=== PATIENT | male | born 1985 | race Caucasian/White ===

== ENCOUNTER 2017-05-01 14:29 | Emergency (ER) | payer SELFPAY ==
[~2017-05-01] VITALS: Ht 188 cm; Wt 79.4 kg
[2017-05-01] MEDS ORDERED: Morphine Sulfate 4mg/ml Inj IVP ONE (14:45)
[2017-05-01 15:29] LABS: PROTHROMBIN TIME 10.5 SEC (9.30-11.50)
[2017-05-01] MEDS ORDERED: LORazepam Inj 2mg/ml 1ml IV ONE (15:30)
[2017-05-01 15:35] LABS: MEAN CORPUSCULAR HEMOGLOBIN 32.1 PG (27.0-31.0); MEAN CORPUSCULAR VOLUME 94 FL (80-99); MEAN PLATELET VOLUME 6.3 FL (6.5-10.1); PLATELET COUNT 265 K/UL (150-450); RED BLOOD COUNT 5.78 M/UL (4.70-6.10); RED CELL DISTRIBUTION WIDTH 10.9 % (11.6-14.8); WHITE BLOOD COUNT 16.8 K/UL (4.8-10.8)
[2017-05-01 15:46] LABS: ANION GAP 13 mmol/L (5-15); CALCIUM 9.3 MG/DL (8.5-10.1); CARBON DIOXIDE 24 MMOL/L (21-32); CHLORIDE 102 MMOL/L (98-107); CREATININE 1.4 MG/DL (0.55-1.30); GLOMERULAR FILTRATION RATE 58.7 mL/min (>60); SODIUM 139 MMOL/L (136-145)
[2017-05-01 15:51] LABS: ALANINE AMINOTRANSFERASE 22 U/L (12-78); ALBUMIN/GLOBULIN RATIO 1.4 (1.0-2.7); ASPARTATE AMINO TRANSFERASE 18 U/L (15-37); LIPASE 62 U/L (73-393); TOTAL PROTEIN 7.7 G/DL (6.4-8.2)
[2017-05-01 16:06] LABS: BAND NEUTROPHILS % (MANUAL) 0 % (0-8); BASOPHILS % (MANUAL) 0 % (0-2); EOSINOPHILS % (MANUAL) 0 % (0-3); LYMPHOCYTES % (MANUAL) 4 % (20-45); NEUTROPHILS % (MANUAL) 91 % (45-75); PLATELET ESTIMATE ADEQUATE; PLATELET MORPHOLOGY NORMAL; TOTAL CELLS COUNTED 100
[2017-05-01] MEDS ORDERED: ZOFRAN4 M3 ORAL (17:23)
[2017-05-01] MEDS ORDERED: NORCO 5-325 TA1 EAC1 ORAL (17:23)
[2017-05-01 17:39] VITALS: BP 110/69
--- NOTE | 2017-05-01 21:31 | Emergency Room Report ---
History of Present Illness General Chief Complaint: Back Pain-No Injury Source: Patient, Family Member Present Illness HPI The patient is a 31-year-old male presenting for nausea, vomiting, diarrhea, and abdominal pain. He states that the other symptoms began prior to the abdominal pain. This all began this morning. He denies any recent travel or known sick contacts. He states that he is having 10 out of 10 dull ache to the entire abdomen and is worse with retching. He is also having a 10 out of 10 dull ache to the mid lower back which began after the other symptoms began. He states that he has a history of chronic back pain and this made it worse. He is not taking any medications yet for the pain He denies other symptoms including fever, CP, SOB, rash, dizziness Allergies: Coded Allergies: AZITHROMYCIN (Verified Allergy, Unknown, 05/01/17) Uncoded Allergies: PENICILLIN (Allergy, Unknown, 05/01/17) Patient History Past Medical History: see triage record Pertinent Family History: none Reviewed Nursing Documentation: PMH: Agreed, PSxH: Agreed Nursing Documentation-PMH Past Medical History: No History, Except For Review of Systems All Other Systems: negative except mentioned in HPI Physical Exam Vital Signs Date Time Temp Pulse Resp B/P (MAP) Pulse Ox O2 Delivery O2 Flow Rate FiO2 05/01/17 14:24 97.3 112 30 149/93 97 05/01/17 17:39 Room Air Sp02 EP Interpretation: reviewed, normal General Appearance: alert, GCS 15, non-toxic, mild distress Head: normocephalic, atraumatic Eyes: bilateral eye normal inspection, bilateral eye PERRL ENT: hearing grossly normal, normal pharynx, no angioedema, normal voice Neck: full range of motion, supple/symm/no masses Respiratory: chest non-tender, lungs clear, normal breath sounds, speaking full sentences Cardiovascular #1: regular rate, rhythm, no edema Gastrointestinal: normal bowel sounds, no mass, no guarding, tenderness - diffuse Genitourinary: normal inspection Musculoskeletal: back normal, gait/station normal, normal range of motion, non- tender Neurologic: alert, oriented x3, responsive, motor strength/tone normal, sensory intact, speech normal Psychiatric: judgement/insight normal, memory normal, mood/affect normal, no suicidal/homicidal ideation Skin: normal color, no rash, warm/dry, well hydrated Medical Decision Making PA Attestation Dr. Julian is my supervising physician. Patient management was discussed with my supervising physician Diagnostic Impression: Primary Impression: Gastroenteritis ER Course The patient is a 31-year-old male presenting for nausea, vomiting, diarrhea, and abdominal pain. Differential diagnoses considered but not limited to: Gastroenteritis, GERD, gastritis, appendicitis, pancreatitis PE: initially tachycardic. Afebrile. Mild distress from pain RRR Lungs CTA bilat Abd is soft. Normal BS. Non distended. Diffuse TTP Labs: CBC: leukocytosis. CMP elevated creatinine to 1.[address] of abd/pelvis shows signs consistent with enteritis The patient was given IV fluids, Zofran, and pain medication and states that he is feeling significantly better. Will be discharged home. ER precautions given Laboratory Tests Test 05/01/17 15:08 White Blood Count 16.8 K/UL (4.8-10.8) H Red Blood Count 5.78 M/UL (4.70-6.10) Hemoglobin 18.5 G/DL (14.2-18.0) *H Hematocrit 54.4 % (42.0-52.0) H Mean Corpuscular Volume 94 FL (80-99) Mean Corpuscular Hemoglobin 32.1 PG (27.0-31.0) H Mean Corpuscular Hemoglobin Concent 34.0 G/DL (32.0-36.0) Red Cell Distribution Width 10.9 % (11.6-14.8) L Platelet Count 265 K/UL (150-450) Mean Platelet Volume 6.3 FL (6.5-10.1) L Neutrophils (%) (Auto) % (45.0-75.0) Lymphocytes (%) (Auto) % (20.0-45.0) Monocytes (%) (Auto) % (1.0-10.0) Eosinophils (%) (Auto) % (0.0-3.0) Basophils (%) (Auto) % (0.0-2.0) Differential Total Cells Counted 100 Neutrophils % (Manual) 91 % (45-75) H Lymphocytes % (Manual) 4 % (20-45) L Monocytes % (Manual) 5 % (1-10) Eosinophils % (Manual) 0 % (0-3) Basophils % (Manual) 0 % (0-2) Band Neutrophils 0 % (0-8) Platelet Estimate Adequate Platelet Morphology Normal Prothrombin Time 10.5 SEC (9.30-11.50) Prothrombin Time INR 1.0 (0.9-1.1) PTT 26 SEC (23-33) Sodium Level 139 MMOL/L (136-145) Potassium Level 4.0 MMOL/L (3.5-5.1) Chloride Level 102 MMOL/L (98-107) Carbon Dioxide Level 24 MMOL/L (21-32) Anion Gap 13 mmol/L (5-15) Blood Urea Nitrogen 15 mg/dL (7-18) Creatinine 1.4 MG/DL (0.55-1.30) H Estimate Glomerular Filtration Rate 58.7 mL/min (>60) Glucose Level 150 MG/DL (74-106) H Calcium Level 9.3 MG/DL (8.5-10.1) Total Bilirubin 0.8 MG/DL (0.2-1.0) Aspartate Amino Transferase (AST) 18 U/L (15-37) Alanine Aminotransferase (ALT) 22 U/L (12-78) Alkaline Phosphatase 55 U/L (46-116) Total Protein 7.7 G/DL (6.4-8.2) Albumin 4.5 G/DL (3.4-5.0) Globulin 3.2 g/dL Albumin/Globulin Ratio 1.4 (1.0-2.7) Lipase 62 U/L (73-393) L Lab Results Impression CBC: Leukocytosis. Hgb of 18.5 CMP: Cr of 1.4 CT/MRI/US Diagnostic Results CT/MRI/US Diagnostic Results : Imaging Test Ordered: CT abd/pelvis Impression consistent with enteritis Last Vital Signs Date Time Temp Pulse Resp B/P (MAP) Pulse Ox O2 Delivery O2 Flow Rate FiO2 05/01/17 17:39 79 18 110/69 97 Room Air 05/01/17 17:39 99.4 Status: improved Disposition: HOME, SELF-CARE Condition: Improved Scripts Hydrocodone Bit/Acetaminophen 5-325* (NORCO 5-325 TABLET*) 1 Each Tablet 1 TAB ORAL Q6HR Y for For Pain, #10 TAB Prov: FLOR TRAYLOR P.A. 05/01/17 Ondansetron* (ZOFRAN*) 4 Mg Tablet 4 MG ORAL Q6H Y for Nausea & Vomiting, #15 TAB Prov: FLOR TRAYLOR 05/01/17 Patient Instructions: Viral Gastroenteritis, Adult, Back Pain, Adult, Food Choices to Help Relieve Diarrhea, Adult Additional Instructions: I discussed my findings with the patient. All questions and concerns have been answered. Treatment and medication compliance have been addressed. I advised the patient that they need to follow up with PMD in 3-5 days. Return to ED if symptoms worsen, new symptoms arise, or if needed for any reason. Patient verbalized understanding of discharge instructions. FLOR TRAYLOR May 01, 2017 21:31
--- NOTE | 2017-05-02 09:36 | Diagnostic Imaging Report ---
Indication: Abdominal pain Technique: Continuous helical transaxial imaging of the abdomen and pelvis was obtained from the lung bases to the pubic symphysis during intravenous contrast administration. Coronal 2-D reformats were also obtained. Study obtained in a Siemens sensation [address] Automatic Exposure Control was utilized. Total Dose length Product (DLP): [address] Dose Index Volume (CTDIvol): 0.15, 10.45 mGy Comparison: None Findings: Mild distended fluid-filled small bowel noted. Consider enteritis. No free air or free fluid demonstrated. No evidence of bowel obstruction. Solid organs are normal. There is no hydronephrosis. Appendix is normal. Right inguinal surgery has been done with a cyst staple line noted. Impression: Possible enteritis. Please correlate clinically. Evidence of previous right inguinal hernia repair. [facility] has communicated the preliminary results to the Emergency Department. Their findings are largely concordant with this report. The CT scanner at [facility] is accredited by the [employer] and the scans are performed using dose optimization techniques as appropriate to a performed exam including Automatic Exposure control.
== END 2017-05-01 17:45 | disposition home or self-care (01) ==
LOC: EDBD 14:29 → EMR 15:35
DX: K52.9 Noninfective gastroenteritis and colitis, unspecified (principal); Z88.0 Allergy status to penicillin
CPT/HCPCS: 36415; 74177; 80053; 83690; 85007; 85025; 85610; 85730; 96361; 96374; 96375; 99284; J2270; J2405; Q9967; S0028